=== PATIENT | male | born 1985 | race Caucasian/White ===

== ENCOUNTER 2020-08-13 14:17 | Outpatient (CLI) | payer BC, SELFPAY ==
--- NOTE | ~2020-08-13 | XR_ITS ---
XR wrist LT min 3V DATE: 08/13/2020 14:43 INDICATION: Pain and lump of left wrist TECHNIQUE: 4 views COMPARISON: None FINDINGS: No fracture or dislocation, periosteal reaction or bone destruction, joint space narrowing, erosive change or chondrocalcinosis. IMPRESSION: Negative Reviewed, dictated and finalized at location B. IMPRESSION: Negative
== END 2020-08-13 14:18 | disposition home or self-care (01) ==
PROVIDERS: PCP Family Medicine; Visit Provider Family Medicine
DX: M25.532 Pain in left wrist (principal)
CPT/HCPCS: 73110

== ENCOUNTER 2022-12-12 05:15 | Emergency (ER) | payer OTHER, SELFPAY ==
[2022-12-12] VITALS (22 sets, daily range): BP systolic 106–144; BP diastolic 74–93; PULSE 63–88; RESP 12–21; TEMP 36.4; O2SAT 95–100
--- NOTE | ~2022-12-12 | XR_ITS ---
XR chest 2V DATE: 12/12/2022 06:14 INDICATION: Chest pain TECHNIQUE: PA and lateral views COMPARISON: None FINDINGS: Normal heart size. No hilar or mediastinal enlargement. Mild elevation of left diaphragm. No pulmonary infiltrate or consolidation, pleural effusion or pulmonary vascular congestion or pneumo thorax. Included skeletal structures are unremarkable. IMPRESSION: No active cardiopulmonary disease Reviewed, dictated and finalized at location A.
--- NOTE | 2022-12-12 05:16 | ECG_ITS ---
Measurements Intervals [place] Rate: 70 P: 24 CT: 179 QRS: -8 QRSD: 121 T: 13 QT: 374 QTc: 406 Interpretive Statements SINUS RHYTHM INCOMPLETE RIGHT BUNDLE BRANCH BLOCK BORDERLINE T WAVE ABNORMALITY- INFERIOR LEADS BASELINE ARTIFACT- I, II, III, AVF BORDERLINE ECG NO PREVIOUS ECG AVAILABLE FOR COMPARISON Electronically Signed On 12-12-2022 7:57:20 CDT by Stan Jung D.O.
[2022-12-12] MEDS: ASPIRIN 81 MG CHEWABLE TABLET 324 MG PO (05:23)
[2022-12-12 05:33] LABS: Basophils Percent Auto 0.4 % (0.2-1.2); Eosinophils Absolute Auto 0.2 K/mm3 (0-0.3); Eosinophils Percent Auto 2.2 % (0-4.4); Immature Granulocyte Absolute 0.03 K/mm3 (0.00-0.031); Immature Granulocyte Percent A 0.3 % (0-0.5); Lymphocytes Absolute Auto 2.84 K/mm3 (0.9-3.2); Mean Corpuscular HGB Conc 31.9 g/dl (32-36); Mean Corpuscular Hemoglobin 28.3 pg (26-34); Mean Corpuscular Volume 88.7 fl (80-100); Mean Platelet Volume 9.2 fl (7.4-10.4); Monocytes Absolute Auto 0.4 K/mm3 (0.1-0.6); Monocytes Percent Auto 4.8 % (2.6-8.5); Neutrophils Absolute Auto 5.6 K/mm3 (1.3-6.7); Neutrophils Percent Auto 61.3 % (45.5-73.1); Platelet Count Result 314 k/mm3 (150-375); White Blood Count 9.2 K/mm3 (4.5-10.0)
[2022-12-12 05:42] LABS: Alanine Aminotransferase 85 U/L (6-50); Albumin Level 4.9 g/dL (3.5-5.1); Alkaline Phosphatase 48 U/L (38-126); Anion Gap 9 mmol/L (8-16); Aspartate Amino Transferase 65 U/L (17-59); Bilirubin,Total 0.6 mg/dL (0.2-1.3); Blood Urea Nitrogen 12 mg/dL (9-20); Carbon Dioxide 29 mmol/L (22-30); Chloride 103 mmol/L (98-107); Estimated CRCL calculation 135 ml/min; Estimated Glomerular Filt Rate > 60; Glucose 123 mg/dL (65-110); Lipase 105 U/L (23-300); Potassium 4.2 mmol/L (3.4-5.0); Sodium 141 mmol/L (137-145)
[2022-12-12 05:44] LABS: INR 0.9; Partial Thromboplastin Time 27.8 SECONDS (22.3-36.8); Prothrombin Time 12.3 Seconds (11.1-14.7)
--- NOTE | 2022-12-12 05:45 | ED.GENADULT ---
HPI - General Adult General Chief complaint: Chest Pain <Ebenezer Goodwin MD - Last Filed: 12/12/22 07:19> Stated complaint: chest pain <Ebenezer Goodwin MD - Last Filed: 12/12/22 07:19> Time Seen by Provider: 12/12/22 05:32 <Ebenezer Goodwin MD - Last Filed: 12/12/22 07:19> History of Present Illness HPI narrative: Patient 37-year-old gentleman who presents the emergency department with chief complaint of chest pain. Patient reports that around midnight he started having pressure sensation in his chest patient states that that does not radiate reports that its been pretty well constant since then patient denies prior history of cardiac disease reports no prior medical issues patient reports no family history for early cardiac disease <Ebenezer Goodwin MD - Last Filed: 12/12/22 07:19> Related Data Allergies/adverse reactions: Allergies Allergy/AdvReac Type Severity Reaction Status Date / Time No Known Allergies Allergy Verified 12/12/22 05:22 <Ebenezer Goodwin MD - Last Filed: 12/12/22 07:19> Review of Systems Review of Systems: A 10 system review of systems was completed on the patient and is negative except for what is stated in the HPI. Nursing and ancillary documentation was reviewed. <Ebenezer Goodwin MD - Last Filed: 12/12/22 07:19> Exam Narrative: GENERAL: Well-appearing, well-nourished, and in no acute distress. HEAD: Normocephalic, atraumatic. EYES: PERRLA and EOMI. ENT: Nares clear, no rhinorrhea or epistaxis. Mucous membranes moist. NECK: Supple. CHEST: Clear to auscultation. No respiratory distress. HEART: Regular rate and rhythm. No murmur heard. Normal peripheral pulses. ABDOMEN: Soft, nontender, nondistended, normal active bowel sounds. EXTREMITIES: Normal range of motion. No edema. SKIN: Warm, dry, no rash. NEURO: No focal deficits. Alert and oriented x3. PSYCH: Normal mood and affect. <Ebenezer Goodwin MD - Last Filed: 12/12/22 07:19> Course Reevaluation(s) Reevaluation #1: Patient been resting quietly in the emergency room without any issues or problems. Patient believes that his symptoms resolved after GI cocktail. GERD is my concern. Patient was pointing to epigastric area which was hurting him and brought him to the emergency room at that time. <Alberto Gonzales MD - Last Filed: 12/12/22 10:03> Date: 12/12/22 <Alberto Gonzales MD - Last Filed: 12/12/22 10:03> Time: 09:56 <Alberto Gonzales MD - Last Filed: 12/12/22 10:03> Vital Signs Vital signs: Vital Signs Pulse Rate 73 12/12/22 05:23 Respiratory Rate 21 H 12/12/22 05:23 Pulse Oximetry 99 12/12/22 05:23 Oxygen Delivery Room Air 12/12/22 05:23 Temperature 36.4 C 12/12/22 05:24 Pulse Rate 68 12/12/22 08:15 Respiratory Rate 14 12/12/22 08:15 Blood Pressure 122/80 12/12/22 08:01 Pulse Oximetry 98 12/12/22 08:15 Oxygen Delivery Room Air 12/12/22 05:30 <Ebenezer Goodwin MD - Last Filed: 12/12/22 07:19> Vital Signs Pulse Rate 73 12/12/22 05:23 Respiratory Rate 21 H 12/12/22 05:23 Pulse Oximetry 99 12/12/22 05:23 Oxygen Delivery Room Air 12/12/22 05:23 Temperature 36.4 C 12/12/22 05:24 Pulse Rate 68 12/12/22 08:15 Respiratory Rate 14 12/12/22 08:15 Blood Pressure 122/80 12/12/22 08:01 Pulse Oximetry 98 12/12/22 08:15 Oxygen Delivery Room Air 12/12/22 05:30 <Alberto Gonzales MD - Last Filed: 12/12/22 10:03> Medical Decision Making Vital Signs Vital Signs: Vital Signs Pulse Rate 73 12/12/22 05:23 Respiratory Rate 21 H 12/12/22 05:23 Pulse Oximetry 99 12/12/22 05:23 Oxygen Delivery Room Air 12/12/22 05:23 Temperature 36.4 C 12/12/22 05:24 Pulse Rate 68 12/12/22 08:15 Respiratory Rate 14 12/12/22 08:15 Blood Pressure 122/80 12/12/22 08:01 Pulse Oximetry 98 12/12/22 08:15 Oxygen Deliv
[2022-12-12] MEDS: NITROGLYCERIN SL 0.4 MG TABLET SUBLINGUAL (05:53)
[2022-12-12 05:54] LABS: Troponin I < 0.012 ng/mL (0.000-0.034)
[2022-12-12] MEDS: BELLADONNA ALK/PHENOB ELIX 10 ML, MAG HYDROX/ALUMINUM HYD/SIMETH 30 ML, LIDOCAINE HCL 2... PO (05:54)
[2022-12-12 08:42] LABS: Troponin I < 0.012 ng/mL (0.000-0.034)
== END 2022-12-12 10:06 | disposition home or self-care (01) ==
PROVIDERS: Emergency Medicine; Emergency Provider Emergency Medicine; PCP Family Medicine
DX: R07.89 Other chest pain (principal)
CPT/HCPCS: 36415; 71046; 80053; 83690; 84484; 85025; 85610; 85730; 93005; 99284; A9270

== ENCOUNTER 2023-12-31 22:27 | Emergency (ER) | payer OTHER, SELFPAY ==
[2023-12-31] VITALS (7 sets, daily range): BP systolic 111–132; BP diastolic 65–83; PULSE 68; RESP 16; TEMP 34.4; O2SAT 98–100
--- NOTE | ~2023-12-31 | CT_ITS ---
EXAMINATION: CT abdomen pelvis w con DATE: 01/01/2024 00:20 INDICATION: Abdominal pain TECHNIQUE: Computed tomography (CT) of the abdomen and pelvis was performed with 100 mL Omnipaque-350 intravenous contrast. Automated exposure control and iterative reconstruction technique were employe d. The dose-length product was 1142.07 mGy-cm. COMPARISON: None FINDINGS: Mild atelectasis at the bilateral lung bases. Heart size is normal. No pericardial or pleural effusio n. There are a few calcified gallstones the dependent aspect of the gallbladder which atypically exte nds more posteriorly along the inferior margin of the right hepatic lobe. There is subtle heterogeneo us enhancement of the liver with slight relative hypoenhancement in portions of the left hepatic lobe . Small region of mild periportal edema in segment 7 of the liver. Spleen, pancreas, bilateral adrena l glands and kidneys are normal. Bowels including the appendix are normal. Bladder is normal. Small f at-containing bilateral inguinal hernias. No free intraperitoneal gas or fluid. No pathologically enl arged abdominal or pelvic lymphadenopathy. Bones are unremarkable. IMPRESSION: 1. Cholelithiasis. 2. Subtle heterogeneous enhancement of the liver which could be related to phase of contrast however there is also a region of mild periportal edema in segment 7 of the liver which could be due to acute hepatitis, cholangitis or hepatic venous congestion. Correlate with liver enzymes and could consider further evaluation with follow-up pre and multiphase postcontrast MRI. Reviewed, dictated and finalized at location A. IMPRESSION: 1. Cholelithiasis. 2. Subtle heterogeneous enhancement of the liver which could be related to phas e of contrast however there is also a region of mild periportal edema in segmen t 7 of the liver which could be due to acute hepatitis, cholangitis or hepatic venous congestion. Correlate with liver enzymes and could consider further eval uation with follow-up pre and multiphase postcontrast MRI.
[2023-12-31] MEDS: ONDANSETRON INJ 4 MG/2 ML VIAL IV PUSH (23:24)
[2023-12-31] MEDS: MORPHINE SULFATE (*CRX) 4 MG/ML INJ IV PUSH (23:24)
[2023-12-31] MEDS: FAMOTIDINE 20 MG/2 ML VIAL IV PUSH (23:24)
[2023-12-31] MEDS: SODIUM CHLORIDE 0.9% IV 1,000 ML 999 ML IV CONT (23:24)
[2023-12-31 23:32] LABS: Basophils Absolute Auto 0.1 K/mm3 (0.0-0.1); Basophils Percent Auto 0.4 % (0.2-1.2); Eosinophils Absolute Auto 0.1 K/mm3 (0-0.3); Eosinophils Percent Auto 0.8 % (0-4.4); Hematocrit 42.1 % (42.0-52.0); Hemoglobin 14.2 g/dL (14.0-18.0); Immature Granulocyte Absolute 0.05 K/mm3 (0.00-0.031); Immature Granulocyte Percent A 0.4 % (0-0.5); Lymphocytes Absolute Auto 2.85 K/mm3 (0.9-3.2); Lymphocytes Percent Auto 22.2 % (18.3-44.2); Mean Corpuscular HGB Conc 33.7 g/dl (32-36); Mean Corpuscular Hemoglobin 28.9 pg (26-34); Mean Corpuscular Volume 85.7 fl (80-100); Mean Platelet Volume 10.5 fl (7.4-10.4); Monocytes Absolute Auto 0.7 K/mm3 (0.1-0.6); Monocytes Percent Auto 5.8 % (2.6-8.5); Neutrophils Percent Auto 70.4 % (45.5-73.1); Platelet Count Result 277 k/mm3 (150-375); Red Blood Count 4.91 M/mm3 (4.6-6.20); Red Cell Distribution Width 13.4 % (11.5-14.5); White Blood Count 12.8 K/mm3 (4.5-10.0)
--- NOTE | 2023-12-31 23:45 | ED.GENADULT ---
HPI - General Adult General Chief complaint: Abdominal Pain Stated complaint: ABD pain, n/v Time Seen by Provider: 12/31/23 22:51 History of Present Illness HPI narrative: Patient 38-year-old gentleman who presents emergency department with chief complaint of abdominal pain. Patient reports about 2-4 hours ago started having discomfort in his abdomen patient reports that he has had some vomiting reports no diarrhea reports that he had normal bowel movement this morning. The patient reports he has had some recent changes in his diet and today did he both [place] food and tofu Related Data Allergies Allergy/AdvReac Type Severity Reaction Status Date / Time No Known Allergies Allergy Verified 12/31/23 23:30 Review of Systems Review of Systems: A 10 system review of systems was completed on the patient and is negative except for what is stated in the HPI. Nursing and ancillary documentation was reviewed. Exam Narrative: GENERAL: Well-appearing, well-nourished, and in mild acute distress. HEAD: Normocephalic, atraumatic. EYES: PERRLA and EOMI. ENT: Nares clear, no rhinorrhea or epistaxis. Mucous membranes moist. NECK: Supple. CHEST: Clear to auscultation. No respiratory distress. HEART: Regular rate and rhythm. No murmur heard. Normal peripheral pulses. ABDOMEN: Soft, tenderness to palpation in the epigastric region, nondistended, normal active bowel sounds. EXTREMITIES: Normal range of motion. No edema. SKIN: Warm, dry, no rash. NEURO: No focal deficits. Alert and oriented x3. PSYCH: Normal mood and affect. Course Vital Signs Vital signs: Vital Signs Temperature 34.4 C L 12/31/23 22:29 Pulse Rate 68 12/31/23 22:29 Respiratory Rate 16 12/31/23 22:29 Blood Pressure 111/65 12/31/23 22:29 Pulse Oximetry 99 12/31/23 22:29 Oxygen Delivery Room Air 12/31/23 22:29 Temperature 34.4 C L 12/31/23 22:29 Pulse Rate 63 01/01/24 00:46 Respiratory Rate 17 01/01/24 00:46 Blood Pressure 122/84 01/01/24 00:46 Pulse Oximetry 99 01/01/24 00:46 Oxygen Delivery Room Air 12/31/23 22:29 Medical Decision Making [facility] Narrative Medical decision making narrative: Differential diagnosis includes pancreatitis, cholecystitis, cholelithiasis, biliary colic, gastroenteritis, gastritis Laboratory studies were obtained on the patient showed a white count of 12.8 electrolytes are within normal limits lactate was 2.4 lipase was 216 liver enzymes were normal CT scan of the abdomen pelvis showed cholelithiasis without evidence of acute cholecystitis Patient is feeling better at this time plan will be to get the patient's pain under control and have the patient follow-up as an outpatient as he Vital Signs Vital Signs: Vital Signs Temperature 34.4 C L 12/31/23 22:29 Pulse Rate 68 12/31/23 22:29 Respiratory Rate 16 12/31/23 22:29 Blood Pressure 111/65 12/31/23 22:29 Pulse Oximetry 99 12/31/23 22:29 Oxygen Delivery Room Air 12/31/23 22:29 Temperature 34.4 C L 12/31/23 22:29 Pulse Rate 63 01/01/24 00:46 Respiratory Rate 17 01/01/24 00:46 Blood Pressure 122/84 01/01/24 00:46 Pulse Oximetry 99 01/01/24 00:46 Oxygen Delivery Room Air 12/31/23 22:29 Lab Data 12/31/23 23:23 12/31/23 23:23 Labs: Lab Results 12/31/23 Range/Units 23:23 WBC 12.8 H (4.5-10.0) K/mm3 RBC 4.91 (4.6-6.20) M/mm3 Hgb 14.2 (14.0-18.0) g/dL Hct 42.1 (42.0-52.0) % MCV 85.7 (80-100) fl MCH 28.9 (26-34) pg MCHC 33.7 (32-36) g/dl RDW 13.4 (11.5-14.5) % Plt Count 277 (150-375) k/mm3 MPV 10.5 H (7.4-10.4) fl Immature Gran % (Auto) 0.4 (0-0.5) % Neut % (Auto) 70.4 (45.5-73.1) % Lymph % (Auto) 22.2 (18.3-44.2) % [place] % (Auto) 5.8 (2.6-8.5) % Eos % (Auto) 0.8 (0-4.4) % Baso % (Auto) 0.4 (0.2-1.2) % Lymph # (Auto) 2.85 (0.9-3.2) K/mm3 [place] # (Auto) 0.7 H (0.1-0.6) K/mm3 Eos # (Auto) 0.1
[2023-12-31 23:50] LABS: Lipase 216 U/L (23-300)
[2023-12-31 23:52] LABS: Alanine Aminotransferase 30 U/L (6-50); Albumin Level 4.8 g/dL (3.5-5.1); Alkaline Phosphatase 46 U/L (38-126); Anion Gap 14 mmol/L (4-12); Aspartate Amino Transferase 33 U/L (17-59); Bilirubin,Total 0.6 mg/dL (0.2-1.3); Blood Urea Nitrogen 16 mg/dL (9-20); Carbon Dioxide 21 mmol/L (22-30); Chloride 103 mmol/L (98-107); Estimated CRCL calculation 120 ml/min; Estimated Glomerular Filt Rate > 60; Glucose 171 mg/dL (65-110); Lactic Acid Reflex 2.4 mmol/L (0.7-2.0); Potassium 3.8 mmol/L (3.4-5.0); Sodium 138 mmol/L (137-145)
[2024-01-01 00:09] VITALS: O2SAT 99
[2024-01-01 00:15] VITALS: O2SAT 96
[2024-01-01 00:30] VITALS: O2SAT 100
[2024-01-01 00:46] VITALS: BP 122/84; PULSE 63; RESP 17; O2SAT 99
[2024-01-01] MEDS: KETOROLAC 15 MG/ML VIAL (*BKC) IV PUSH (01:50)
[2024-01-01 02:11] VITALS: BP 128/82; PULSE 65; RESP 17; O2SAT 96
[2024-01-01 02:29] LABS: Reflex Lactic Acid Yes or No Add Lactic
== END 2024-01-01 02:14 | disposition home or self-care (01) ==
PROVIDERS: Emergency Provider Emergency Medicine; PCP Family Medicine
DX: K80.20 Calculus of gallbladder without cholecystitis without obstruction (principal)
CPT/HCPCS: 36415; 74177; 80053; 83605; 83690; 85025; 96361; 96374; 96375; 99284; J1885; J2270; J2405; J7030; Q9967